=== PATIENT | female | born 1960 ===

== ENCOUNTER → 2024-02-26 | Outpatient (CLI) | payer OTHER, MEDICAID | END | disposition home or self-care (01) | LOC: CARD 01-08 13:00 | PROVIDERS: ATTEND Internal Medicine Cardiovascular Disease | DX: I35.0 Nonrheumatic aortic (valve) stenosis (principal); R06.09 Other forms of dyspnea; I51.7 Cardiomegaly; I51.89 Other ill-defined heart diseases ==